=== PATIENT | male | born 1945 | race Caucasian/White ===

== ENCOUNTER 2016-06-08 05:33 | Emergency (ER) | payer OTHER ==
[2016-06-08 06:32] LABS: ALBUMIN 3.4 gm/dL (3.4-5.0); ALKALINE PHOSPHATASE 65 U/L (50-136); ALT/SGPT 10 U/L (7.53-40.17); AST/SGOT 11 U/L (6.66-35.34); BILIRUBIN,TOTAL 0.19 mg/dL (0.0-1.0); BLOOD UREA NITROGEN 14 mg/dL (7-18); CALCIUM 8.1 mg/dL (8.7-10.7); CARBON DIOXIDE 24 mmol/L (21-32); CREATINE KINASE 104 U/L (35-232); CREATININE 0.7 mg/dL (0.6-1.3); GLUCOSE,RANDOM 112 mg/dL (70-99); POTASSIUM 3.6 mmol/L (3.5-5.1); SODIUM 143 mmol/L (136-145); TOTAL PROTEIN 5.9 gm/dL (6.4-8.2)
[2016-06-08 06:59] LABS: BASO # 0.1 10_X3_uL (0.0-0.1); EOS # 0.7 10_X3_uL (0.0-0.5); EOS % 10.8 % (0.8-7.0); GRAN # 3.4 10_X3_uL (1.8-5.4); GRAN % 54.6 % (34.0-67.9); HEMATOCRIT 36.7 % (40-51); HEMOGLOBIN 11.6 g/dL (13.7-17.5); LYMPH # 1.4 10_X3_uL (1.3-3.6); MEAN CORPUSCULAR HEMOGLOBIN 27.2 pg (27.0-33.0); MEAN CORPUSCULAR HGB CONC 31.6 g/dL (32.0-36.0); MEAN CORPUSCULAR VOLUME 85.9 fL (79-92); MEAN PLATELET VOLUME 10.6 fl (7.5-11.5); MONO # 0.7 10_X3_uL (0.3-0.8); MONO % 11.6 % (5.3-12.2); PLATELET COUNT 257 x10_3/uL (163-337); RED BLOOD COUNT 4.27 x10_6/uL (4.6-6.1); WHITE BLOOD COUNT 6.1 x10_3/uL (4.2-9.1)
== END 2016-06-08 07:48 | disposition home or self-care (01) ==
LOC: ER 05:33
PROVIDERS: Emergency Medicine
DX: J44.9 Chronic obstructive pulmonary disease, unspecified (principal); I10 Essential (primary) hypertension; F17.210 Nicotine dependence, cigarettes, uncomplicated; Z79.899 Other long term (current) drug therapy; Z88.8 Allergy status to other drugs, medicaments and biological substances
CPT/HCPCS: 36415; 71020; 80053; 82550; 82553; 85025; 93005; 94664; 96372; 99285-25

== ENCOUNTER 2016-06-17 03:08 | Emergency (ER) | payer OTHER ==
[2016-06-17 03:40] LABS: BASO # 0.1 10_X3_uL (0.0-0.1); BASO % 0.6 % (0.2-1.2); EOS # 0.5 10_X3_uL (0.0-0.5); EOS % 6.2 % (0.8-7.0); GRAN # 5.2 10_X3_uL (1.8-5.4); GRAN % 63.3 % (34.0-67.9); HEMATOCRIT 38.9 % (40-51); HEMOGLOBIN 12.5 g/dL (13.7-17.5); LYMPH # 1.5 10_X3_uL (1.3-3.6); MEAN CORPUSCULAR HEMOGLOBIN 27.3 pg (27.0-33.0); MEAN CORPUSCULAR HGB CONC 32.1 g/dL (32.0-36.0); MEAN CORPUSCULAR VOLUME 84.9 fL (79-92); MEAN PLATELET VOLUME 10.6 fl (7.5-11.5); MONO % 11.9 % (5.3-12.2); PLATELET COUNT 236 x10_3/uL (163-337); RED BLOOD COUNT 4.58 x10_6/uL (4.6-6.1); RED CELL DISTRIBUTION WIDTH 16.4 % (11.6-14.4); WHITE BLOOD COUNT 8.2 x10_3/uL (4.2-9.1)
[2016-06-17 03:43] LABS: ARTERIAL BLD GAS O2 SATURATION 95.2 % (94-98); ARTERIAL BLOOD GAS BASE EXCESS -0.6 mmol/L (-2.0-3.0); ARTERIAL BLOOD GAS HCO3 23.1 mmol/L (22-26); ARTERIAL BLOOD GAS PCO2 36.5 mmHg (35-48); ARTERIAL BLOOD GAS pH 7.42 (7.35-7.45)
[2016-06-17 03:57] LABS: ALBUMIN 3.5 gm/dL (3.4-5.0); ALKALINE PHOSPHATASE 76 U/L (50-136); ALT/SGPT 14 U/L (7.53-40.17); AST/SGOT 14 U/L (6.66-35.34); BILIRUBIN,TOTAL 0.18 mg/dL (0.0-1.0); CALCIUM 8.6 mg/dL (8.7-10.7); CARBON DIOXIDE 25 mmol/L (21-32); CREATINE KINASE 75 U/L (35-232); CREATININE 0.7 mg/dL (0.6-1.3); GLUCOSE,RANDOM 130 mg/dL (70-99); POTASSIUM 3.9 mmol/L (3.5-5.1); SODIUM 143 mmol/L (136-145); TOTAL PROTEIN 6.3 gm/dL (6.4-8.2)
[2016-06-17 03:58] LABS: BLOOD UREA NITROGEN 21 mg/dL (7-18)
== END 2016-06-17 05:50 | disposition home or self-care (01) ==
LOC: ER 03:08
PROVIDERS: Emergency Medicine
DX: J44.1 Chronic obstructive pulmonary disease with (acute) exacerbation (principal); R05 Cough; F17.210 Nicotine dependence, cigarettes, uncomplicated; Z79.899 Other long term (current) drug therapy; Z88.8 Allergy status to other drugs, medicaments and biological substances; Z88.5 Allergy status to narcotic agent; Z79.51 Long term (current) use of inhaled steroids
CPT/HCPCS: 36415; 36600; 71010; 80053; 82550; 82553; 82803; 83880; 85025; 93005; 96374; 99285-25; J2930